=== PATIENT | female | born 1980 | race Caucasian/White ===

== ENCOUNTER → 2021-10-31 | Emergency (ER) | payer OTHER ==
[~2021-10-31] VITALS: Ht 157.5 cm; Wt 47.6 kg
[~2021-10-31] MED LIST: KETO10TA2 PO; TIROSINT50 MCG PO
== END | disposition home or self-care (01) ==
LOC: ER 11:02
DX: S92.812A Other fracture of left foot, initial encounter for closed fracture (principal); W18.30XA Fall on same level, unspecified, initial encounter; Y93.9 Activity, unspecified; Y92.832 Beach as the place of occurrence of the external cause

== ENCOUNTER 2021-11-12 15:35 | Outpatient (CLI) | payer OTHER | END 2021-11-12 15:37 | disposition home or self-care (01) | LOC: RAD 15:35 | DX: S82.65XA Nondisplaced fracture of lateral malleolus of left fibula, initial encounter for closed fracture (principal) ==

== ENCOUNTER 2021-12-18 12:59 | Outpatient (CLI) | payer OTHER | END 2021-12-18 13:11 | disposition home or self-care (01) | LOC: RAD 12:59 | PROVIDERS: ATTEND Orthopaedic Surgery | DX: S82.65XA Nondisplaced fracture of lateral malleolus of left fibula, initial encounter for closed fracture (principal) ==